=== PATIENT | female | born 1955 ===

== ENCOUNTER 2022-07-10 16:08 | Emergency (ER) | payer SELFPAY ==
--- NOTE | ~2022-07-10 | XR_ITS ---
EXAMINATION: XR chest 2V DATE: 07/10/2022 17:02 INDICATION: PDE presenting with shortness of breath TECHNIQUE: PA and lateral views of the chest were obtained. COMPARISON: None FINDINGS: Scattered bilateral small calcified pulmonary nodules consistent with old granulomatous disease. Ther e are also a few scattered fine but dense linear opacities in both lungs consistent with embolized me thylmethacrylate . Vertebral plasties are seen at T12 and L1 with small amount of extravasated methyl methacrylate extending cephalad in a draining spinal vein lateral to the T10 and T11 vertebral bodies . No other airspace opacities, pulmonary edema, pleural effusion or pneumothorax. Borderline heart si ze slightly exaggerated by a small left paracardial fat pad. Posterior spinal fusion at T12-L1 with b ilateral vertical princess and pedicle screw fixation. IMPRESSION: 1. Likely. No acute cardiopulmonary disease. 2. Scattered small amount of embolized methylmethacrylate in the lungs related to prior thoracolumbar vertebroplasties. Reviewed, dictated and finalized at location A.
--- NOTE | 2022-07-10 16:11 | ECG_ITS ---
Measurements Intervals [place] Rate: 87 P: 57 W[place]: 153 QRS: -30 QRSD: 88 T: 85 QT: 341 QTc: 412 Interpretive Statements SINUS RHYTHM DELAYED PRECORDIAL R/S TRANSITION BORDERLINE T WAVE ABNORMALITY- ANTEROLAT/HIGH LAT LEADS BASELINE ARTIFACT- II, III, AVR, AVL, AVF, V1, V4-V6 BORDERLINE ECG NO PREVIOUS ECG AVAILABLE FOR COMPARISON Electronically Signed On 07-10-2022 18:33:18 CDT by Philip Hutson D.O.
[2022-07-10 16:49] LABS: Basophils Absolute Auto 0.1 K/mm3 (0.0-0.1); Basophils Percent Auto 0.7 % (0.2-1.2); Eosinophils Absolute Auto 0.5 K/mm3 (0-0.3); Hematocrit 39.5 % (37.0-47.0); Hemoglobin 12.7 g/dL (12.0-15.0); Immature Granulocyte Absolute 0.05 K/mm3 (0.00-0.031); Immature Granulocyte Percent A 0.7 % (0-0.5); Lymphocytes Absolute Auto 1.36 K/mm3 (0.9-3.2); Lymphocytes Percent Auto 18.3 % (18.3-44.2); Mean Corpuscular HGB Conc 32.2 g/dl (32-36); Mean Corpuscular Hemoglobin 27.7 pg (26-34); Mean Corpuscular Volume 86.2 fl (80-100); Mean Platelet Volume 8.2 fl (7.4-10.4); Monocytes Absolute Auto 0.6 K/mm3 (0.1-0.6); Monocytes Percent Auto 7.7 % (2.6-8.5); Neutrophils Absolute Auto 4.9 K/mm3 (1.3-6.7); Neutrophils Percent Auto 65.6 % (45.5-73.1); Platelet Count Result 251 k/mm3 (150-375); Red Blood Count 4.58 M/mm3 (4.2-5.4); White Blood Count 7.5 K/mm3 (4.5-10.0)
[2022-07-10 16:59] LABS: Alanine Aminotransferase 23 U/L (6-35); Albumin Level 3.9 g/dL (3.5-5.1); Alkaline Phosphatase 108 U/L (38-126); Anion Gap 5 mmol/L (8-16); Aspartate Amino Transferase 28 U/L (14-36); Bilirubin,Total 0.4 mg/dL (0.2-1.3); Blood Urea Nitrogen 18 mg/dL (7-17); Calcium 8.6 mg/dL (8.4-10.2); Carbon Dioxide 37 mmol/L (22-30); Chloride 96 mmol/L (98-107); Estimated Glomerular Filt Rate > 60; Glucose 131 mg/dL (65-110); Potassium 3.8 mmol/L (3.4-5.0); Sodium 138 mmol/L (137-145)
[2022-07-10 17:41] VITALS: BP 122/84; PULSE 95; RESP 16; TEMP 36.8; O2SAT 99
--- NOTE | 2022-07-10 18:00 | PC.NURSE ---
pt reports having a panic attack, pt feels safe to leave the ED and return home with daughter. daughter is agreeable IV removed, pt ambulated from ED with safe and steady gait
== END 2022-07-10 18:17 | disposition left against medical advice (07) ==
LOC: ANHED 18:12
PROVIDERS: Emergency Provider Emergency Medicine
DX: R06.02 Shortness of breath (principal)
CPT/HCPCS: 36415; 71046; 80053; 85025; 93005; 99199